=== PATIENT | female | born 1990 | race Caucasian/White ===

== ENCOUNTER 2016-10-23 20:02 | Emergency (ER) ==
[2016-10-23 20:03] VITALS: BMI 21.0
[2016-10-23 20:11] VITALS: BP 104/67; TEMP 97.9
--- NOTE | 2016-10-23 20:18 | ED.PDOC ---
General ED Provider: Dr. JESSICA MCMANUS Chief Complaint: Finger Laceration Stated Complaint: Patient is a 25 year old female who complains of a laceration on the right pinky finger with knife yesterday evening. She controlled the bleeding with dressing. Today she Is concerned that she cannot bend the finger and has tingling from that finger up to the elbow , denies any pain other when trying to use the finger. Time Seen by Physician: 20:18 Mode of Arrival: Walk-In Information Source: Patient Exam Limitations: No limitations Primary Care Provider: STEPHANIE LA Nursing and Triage Documentation Reviewed and Agree: Yes Musculoskeletal Complaint Exam - Hand/Wrist Complaint/Exam Location of Pain: Reports: Right, Digit #5 Mechanism of Injury: Reports: Trauma (yesterday ) Onset/Duration: 1 day prior Symptoms Are: Still present Onset of Pain: Reports: Immediate Initial Severity: Moderate Current Severity: None Location: Reports: Discrete (mid 5th digit ) Character: Reports: Stiffness Alleviating: Reports: None Aggravating: Reports: None Associated Signs and Symptoms: Reports: Bruising, Tingling Dominant Hand: Right Related Surgical History: Reports: None Hand/Wrist Findings: Present: Swelling, Laceration (superficial ) Tenderness: Present: Metacarpal. Absent: Radius, Ulna, Snuff box, Carpal Hand Picture: 1 - linear superfical laceration Differential Diagnoses: Infection, Other (laceration ) Review of Systems - Review Of Systems Constitutional: Reports: No symptoms Eyes: Reports: No symptoms Ears, Nose, Mouth, Throat: Reports: No symptoms Respiratory: Reports: No symptoms Cardiac: Reports: No symptoms GI: Reports: No symptoms : Reports: No symptoms Musculoskeletal: Reports: Joint pain Skin: Reports: No symptoms Neurological: Reports: No symptoms Endocrine: Reports: No symptoms Hematologic/Lymphatic: Reports: No symptoms All Other Systems: Reviewed and Negative Past Medical History - Past Medical History Endocrine: Reports: None Cardiovascular: Reports: None Respiratory: Reports: Asthma Hematological: Reports: Anemia Gastrointestinal: Reports: None Genitourinary: Reports: None Neuro/Psych: Reports: Anxiety Musculoskeletal: Reports: None Cancer: Reports: None Last Menstrual Period: 8-7-17 Other Pertinent Past Medical History: MOLESTED FROM AGE 3 TO 6 YEARS OLD - Surgical History General Surgical History: Reports: None - Family History Family History: Reports: None - Social History Smoking Status: Current every day smoker, Light tobacco smoker Hx Substance Use: No Alcohol Screening: Occasionally - Immunizations Tetanus Shot up to Date: Yes Physical Exam - Physical Exam Appearance: Ill-appearing Ill-appearing: Mild Pain Distress: Mild Neck: Supple Respiratory: Airway patent, Breath sounds clear, Breath sounds equal, Respirations nonlabored Cardiovascular: RRR, Pulses normal, No rub, No murmur GI/: Soft, Nontender, No masses, Bowel sounds normal, No Organomegaly Musculoskeletal: Limited ROM Skin: Warm, Dry Neurological: Sensation intact, Alert, Oriented Psychiatric: Affect appropriate, Mood appropriate Critical Care Note - Critical Care Note Total Time (mins): 0 Course - Course Orders, Labs, Meds: Orders Category Date Time Status Finger splint [ED SPLINT APPLICATION] .ONCE EMERGENCY 10/23/16 20:39 Active Ibuprofen [Motrin] MEDS 10/23/16 20:38 Discontinued 600 mg PO ONCE STA FINGER(S) RIGHT MIN 2V Stat RADS 10/23/16 20:39 Completed Medications Discontinued Medications Generic Name Dose Route Start Last Admin Trade Name Freq PRN Reason Stop Dose Admin Ibuprofen 600 mg 10/23/16 20:38 10/23/16 21:11 Motrin PO 10/23/16 20:39 600 mg ONCE STA Administration Vital Signs: Temp Pulse Resp BP Pulse Ox 10/23/16 20:03 97.9 F 93 H 16 104/67 98 Departure - Departure Time of Disposition: 21:25 Disposition: HOME SELF-CARE Discharge Problem: Laceration of finger Instructions: Finger Laceration (ED) Condition: Fair Pt referred to PMD for follow-up: Yes Additional Instructions: Follow up with the Orthopedic clinic on Tuesday morning to be sure if there is no tendon laceration Take Motrin as prescribed Keep hand elevated.Changes Dressing twice a day until healed Prescriptions: Ibuprofen [Motrin] 600 mg PO Q6H PRN #30 tablet PRN Reason: Analgesia Allergies/Adverse Reactions: Allergies No Known Allergies Allergy (Verified 10/23/16 20:11) Home Medications: Ambulatory Orders Norgestimate-Ethinyl Estradiol [Trinessa Tablet] 1 each PO DAILY 04/04/15 Diazepam [Valium] 5 mg PO ONCE PRN 10/23/16 Ibuprofen [Motrin] 600 mg PO Q6H PRN #30 tablet 10/23/16 Mometasone/Formoterol [Dulera 200 Mcg/5 Mcg Inhaler] 2 inh IH BID 10/23/16 Transfer Form Completed: Yes Disposition Discussed With: Patient, Family
[2016-10-23] MEDS ORDERED: MOTRIN PO STA (20:38)
--- NOTE | 2016-10-23 20:55 | DI ---
Exam: Three views right fifth finger. Clinical indication: Injury with pain. Findings / impression: There are no fractures, dislocations or other significant bony abnormalities.
== END 2016-10-23 21:33 | disposition home or self-care (01) ==
LOC: ED 20:02
DX: S61.216A Laceration without foreign body of right little finger without damage to nail, initial encounter (principal); R20.0 Anesthesia of skin; F17.210 Nicotine dependence, cigarettes, uncomplicated; W26.0XXA Contact with knife, initial encounter
CPT/HCPCS: 99283